=== PATIENT | female | born 1935 | race Caucasian/White ===

== ENCOUNTER 2020-03-31 04:12 | Emergency (ER) | payer MEDICARE ==
[~2020-03-31] VITALS: Ht 152.4 cm; Wt 55.0 kg
--- NOTE | 2020-03-31 04:24 | PHYS DOC ---
Past Medical History Past Medical History: Dementia Past Medical History KIDNEY DISEASE Alcohol Use: None Drug Use: None Social History Narrative: LIVES AT DEMENTIA UNIT AT ASSISTED LIVING [facility] Adult EDM: Chief Complaint: MECHANICAL FALL HPI: HPI: Patient is a 84 year old female with a history of dementia fell out of bed just prior to arrival. Patient arrives via EMS with a contusion to the left side of her forehead with superficial laceration above it as well as a skin tear to the left elbow. Patient only complains of the left elbow and head pain. History physical and review of systems is limited due to dementia. Patient does not remember falling. Review of Systems: Review of Systems: Constitutional: Denies fever or chills. [] Eyes: Denies change in visual acuity. [] HENT: Denies nasal congestion or sore throat. [] Respiratory: Denies cough or shortness of breath. [] Cardiovascular: Denies chest pain or edema. [] GI: Denies abdominal pain, nausea, vomiting, bloody stools or diarrhea. [] : Denies dysuria. [] Musculoskeletal: Denies back pain but complains of left elbow pain Integument: Denies rash. [] Neurologic: Complains of headache but no, focal weakness or sensory changes. [] Endocrine: Denies polyuria or polydipsia. [] Lymphatic: Denies swollen glands. [] Psychiatric: Denies depression or anxiety. [] Review of systems limited by altered mental status Heart Score: Risk Factors: Risk Factors: DM, Current or recent (<one month) smoker, HTN, HLP, family history of CAD, obesity. Risk Scores: Score 0 - 3: 2.5% MACE over next 6 weeks - Discharge Home Score 4 - 6: 20.3% MACE over next 6 weeks - Admit for Clinical Observation Score 7 - 10: 72.7% MACE over next 6 weeks - Early Invasive Strategies Current Medications: Current Medications Medications (Trade) Dose Ordered Sig/Neeru Start Time Stop Time Status Last Admin Dose Admin Tetanus/ Diphtheria Toxoids (Tenivac Syringe) 0.5 ml ONCE ONCE 03/31/20 04:30 03/31/20 04:31 UNV Physical Exam: PE: Constitutional: Well developed, well nourished, no acute distress, non-toxic appearance. [] HENT: Contusion to the left temporal area with superficial laceration. No trismus. No obvious oral injuries. No septal hematoma. External ears normal. Eyes: PERRLA, EOMI, conjunctiva normal, no discharge. [] Neck: Normal range of motion, no tenderness, supple, no stridor. [] Cardiovascular:Heart rate regular rhythm,, peripheral pulses intact, cap refill brisk Lungs & Thorax: Bilateral breath sounds clear, no respiratory distress] Abdomen: soft, no tenderness, no masses, no pulsatile masses. [] Skin: Warm, dry, no erythema, no rash. [] Superficial laceration to left temporal area and skin tear to left elbow Back: No tenderness, no CVA tenderness. [] Extremities: Skin tear to left elbow with mild tenderness. No other gross abnormality seen. Neurovascular intact distally. MILD TTP LEFT HIP Neurologic: Alert and oriented X1, normal motor function, normal sensory function, no focal deficits noted. [] Psychologic: Affect normal, judgement normal, mood normal. [] Current Patient Data: Vital Signs: Vital Signs Date Time Temp Pulse Resp B/P (MAP) Pulse Ox O2 Delivery O2 Flow Rate FiO2 03/31/20 04:27 96.2 68 36 183/79 (113 100 Room Air 96.2 EKG: EKG: [] Radiology/Procedures: Radiology/Procedures: [][facility] [address] [place], [place] [id number] IMAGING REPORT Signed PATIENT: TOMMY LOPEZ ACCOUNT: [id number] : 1935 LOCATION: ER AGE: 84 SEX: F EXAM STATUS: REG ER ORD. PHYSICIAN: LAURYN TOBAR MD REASON: FALL PROCEDURE: CT HEAD AND CERVICAL SPINE WO CT head without contrast. CT cervical spine without contrast. PQRS statement: CT scans at this facility use dose reduction including either automated exposure control, iterative reconstructions, and /or weight based radiation dosing via mA and kV modification when appropriate to reduce radiation dose to as low as reasonably achievable. HISTORY: Fall injury. Pain. CT head findings: Generalized brain atrophy. There is ventriculomegaly which may be related to brain atrophy or indicate normal pressure hydrocephalus. There are several scattered tiny punctate calcifications along the surface of the brain at the left insular cortex, right frontal cortex towards the vertex and left occipital cortex these could represent small embolized calcified plaque or could be the sequela of an old parasitic infection such as neurocysticercosis. No edema associated with these small calcifications. No infarct. No mass. No hemorrhage. There is mild left frontal and temporal scalp soft tissue edema. No scalp hematoma. Cartilaginous nasal septal perforation. Orbits, mastoids and bones are unremarkable. IMPRESSION: No acute intracranial CT abnormality. Left frontotemporal scalp soft tissue swelling. No scalp hematoma. No skull fracture. Other incidental findings as described above. CT cervical spine findings: Craniocervical junction intact. Cervical scoliosis. Cervical vertebral body height and alignment intact. Ankylosis of the left C2-C3 facet joint and right C4-C5 facet joint. No fracture of the cervical spine. Multilevel cervical disc height loss and bulky disc osteophytes and uncovertebral facet spurs with spinal canal and neural foraminal stenoses. Lung apices unremarkable. Thyroid nodules largest is a hypodensity centimeter right thyroid nodule. IMPRESSION: 1. No acute osseous injury of the cervical spine 2. Cervical disc disease. 3. 2 cm right thyroid lobe nodule. If this has not been previously evaluated consider further assessment with outpatient thyroid sonography. Electronically signed by: Omer Walker MD (03/31/2020 5:19 AM) [facility] [place] DICTATED and SIGNED BY: OMER WALKER MD DATE: 03/31/20518 IMAGING REPORT Signed PATIENT: TOMMY LOPEZ ACCOUNT: [id number] : 1935 LOCATION: ER AGE: 84 SEX: F EXAM STATUS: REG ER ORD. PHYSICIAN: LAURYN TOBAR MD REASON: FALL PROCEDURE: PORTABLE CHEST 1V AP chest x-ray HISTORY: Fall, pain. FINDINGS: Heart size normal. Mediastinal silhouette is normal. No pneumothorax. No pleural effusions. Mild basilar lower lobe discoid atelectasis. Bones are unremarkable. IMPRESSION: No acute process. Mild basilar discoid atelectasis. AP pelvis x-ray and left hip AP and lateral x-rays HISTORY: Fall, pain. FINDINGS: ORIF left proximal femur with intramedullary nail of the trochanteric femur and proximal shaft with associated femoral neck compression screws bridging a healed femoral fracture with mild bony sclerosis of the medial femoral basicervical cortex. No acute fracture evident. No dislocation. No bone lysis surrounding the hardware to suggest loosening. IMPRESSION: No acute osseous injury. ORIF of the proximal left femur at the hip. Left elbow x-rays 3 views HISTORY: Fall, pain. FINDINGS: No abnormal elevation of the fat pads to suggest a joint. No fracture. No dislocation. Soft tissues are unremarkable. IMPRESSION: No acute osseous injury. Electronically signed by: Omer Walker MD (03/31/2020 5:41 AM) [facility] DI[facility]ATED and SIGNED BY: OMER WALKER MD DATE: 03/31/20 0541 Course & Med Decision Making: Course & Med Decision Making Pertinent Labs and Imaging studies reviewed. (See chart for details) [] 84-year-old female with a history of dementia fell out of bed. Patient has a superficial laceration to the left side of her head that does not require sutures. Patient also has a skin tear left elbow. X-rays were done of the elbow and the hip that she had mild tenderness on exam. X-rays are negative. Head CT was done due to her age and head strike. Head CT is negative. Patient clinically stable and talkative and appears at her baseline. Stable for discharge back to her assisted living facility. [employer] Disclaimer: Amanda Disclaimer: This electronic medical record was generated, in whole or in part, using a voice recognition dictation system. Departure Departure Impression: Primary Impression: Head injury Additional Impressions: Left elbow contusion Contusion of left hip Condition: STABLE Referrals: PCP Patient Instructions: Head Injury, Adult Additional Instructions: EMERGENCY DEPARTMENT GENERAL DISCHARGE INSTRUCTIONS THANK YOU for coming to [facility] Emergency Department (ED) today and trusting us with your care. We trust that you had a positive experience in our Emergency Department. If you wish to speak to the department Management you can contact the service department manager at . YOUR FOLLOW UP INSTRUCTIONS ARE FOLLOWS: Do you have a private doctor? If you do not have a private doctor, please ask for a resource list of physicians or clinics that may be able to assist you with follow up care. The Emergency Physician has interpreted your x-rays. The X-ray specialist will also review them. If there is a change in the findings you will be notified in 48 hours when at all possible. A lab test or lab culture may have been done, your results will be reviewed and you will be notified if you need a change in treatment. ADDITIONAL INSTRUCTIONS AND INFORMATION Your care today has been supervised by a physician who is specially trained in emergency care. Many problems require more than one evaluation for a complete diagnosis and treatment. We recommend that you schedule your follow up appointment as recommended to ensure complete treatment of your illness or injury. If you are unable to obtain follow up care and continue to have a problem, or if your condition worsens we recommend that you return to the ED. We are not able to safely determine your condition over the phone nor are we able to give sound medical advice over the phone. For these safety reasons, if you call for medical advice we will ask you to come to the ED for further evaluation If you have any questions regarding these discharge instructions please call the ED at . SAFETY INFORMATION In the interest of safety, wellness, and injury prevention; we encourage you to wear your seatbelt, if you smoke; quit smoking, and we encourage your family to use protective helmet for bicycling and other sporting events that present an increased risk for head injury. IF YOUR SYMPTOMS WORSEN OR NEW SYMPTOMS DEVELOP, OR YOU HAVE CONCERNS ABOUT YOUR CONDITION; OR IF YOUR CONDITION WORSENS WHILE YOU ARE WAITING FOR YOUR FOLLOW UP APPOINTMENT; EITHER CONTACT YOUR PRIMARY CARE DOCTOR, THE PHYSICIAN WHOSE NAME AND NUMBER YOU WERE GIVEN, OR RETURN TO THE ED IMMEDIATELY. There is a thyroid nodule seen on CT of the neck which needs outpatient ultrasound for further evaluation Justicifation of Admission Dx: Justifications for Admission: Justification of Admission Dx: N/A LAURYN TOBAR MD Mar 31, 2020 04:24
[2020-03-31] MEDS ORDERED: TETANUS AND DIPHTHERIA TOX/PF 0.5 ML DISP.SYRIN. VAX IM ONE (04:30)
--- NOTE | 2020-03-31 05:22 | RAD ---
CT head without contrast. CT cervical spine without contrast. PQRS statement: CT scans at this facility use dose reduction including either automated exposure control, iterative reconstructions, and /or weight based radiation dosing via mA and kV modification when appropriate to reduce radiation dose to as low as reasonably achievable. HISTORY: Fall injury. Pain. CT head findings: Generalized brain atrophy. There is ventriculomegaly which may be related to brain atrophy or indicate normal pressure hydrocephalus. There are several scattered tiny punctate calcifications along the surface of the brain at the left insular cortex, right frontal cortex towards the vertex and left occipital cortex these could represent small embolized calcified plaque or could be the sequela of an old parasitic infection such as neurocysticercosis. No edema associated with these small calcifications. No infarct. No mass. No hemorrhage. There is mild left frontal and temporal scalp soft tissue edema. No scalp hematoma. Cartilaginous nasal septal perforation. Orbits, mastoids and bones are unremarkable. IMPRESSION: No acute intracranial CT abnormality. Left frontotemporal scalp soft tissue swelling. No scalp hematoma. No skull fracture. Other incidental findings as described above. CT cervical spine findings: Craniocervical junction intact. Cervical scoliosis. Cervical vertebral body height and alignment intact. Ankylosis of the left C2-C3 facet joint and right C4-C5 facet joint. No fracture of the cervical spine. Multilevel cervical disc height loss and bulky disc osteophytes and uncovertebral facet spurs with spinal canal and neural foraminal stenoses. Lung apices unremarkable. Thyroid nodules largest is a hypodensity centimeter right thyroid nodule. IMPRESSION: 1. No acute osseous injury of the cervical spine 2. Cervical disc disease. 3. 2 cm right thyroid lobe nodule. If this has not been previously evaluated consider further assessment with outpatient thyroid sonography. Electronically signed by: Steve Garvin MD (03/31/2020 5:19 AM) [facility]
--- NOTE | 2020-03-31 05:44 | RAD ---
AP chest x-ray HISTORY: Fall, pain. FINDINGS: Heart size normal. Mediastinal silhouette is normal. No pneumothorax. No pleural effusions. Mild basilar lower lobe discoid atelectasis. Bones are unremarkable. IMPRESSION: No acute process. Mild basilar discoid atelectasis. AP pelvis x-ray and left hip AP and lateral x-rays HISTORY: Fall, pain. FINDINGS: ORIF left proximal femur with intramedullary nail of the trochanteric femur and proximal shaft with associated femoral neck compression screws bridging a healed femoral fracture with mild bony sclerosis of the medial femoral basicervical cortex. No acute fracture evident. No dislocation. No bone lysis surrounding the hardware to suggest loosening. IMPRESSION: No acute osseous injury. ORIF of the proximal left femur at the hip. Left elbow x-rays 3 views HISTORY: Fall, pain. FINDINGS: No abnormal elevation of the fat pads to suggest a joint. No fracture. No dislocation. Soft tissues are unremarkable. IMPRESSION: No acute osseous injury. Electronically signed by: Steve Garvin MD (03/31/2020 5:41 AM) [facility]
[2020-03-31 06:16] VITALS: BP 179/70
== END 2020-03-31 07:12 | disposition home or self-care (01) ==
LOC: ER 04:12
DX: S01.81XA Laceration without foreign body of other part of head, initial encounter (principal); S51.012A Laceration without foreign body of left elbow, initial encounter; S70.02XA Contusion of left hip, initial encounter; F03.90 Unspecified dementia, unspecified severity, without behavioral disturbance, psychotic disturbance, mood disturbance, and anxiety; E04.1 Nontoxic single thyroid nodule; M50.90 Cervical disc disorder, unspecified, unspecified cervical region; R51 Headache; M25.552 Pain in left hip; R07.89 Other chest pain; W06.XXXA Fall from bed, initial encounter; Y93.89 Activity, other specified; Y92.89 Other specified places as the place of occurrence of the external cause; Y99.8 Other external cause status
CPT/HCPCS: 70450; 71045; 72125; 73080; 73502; 90471; 90714; 99285-25

== ENCOUNTER 2020-04-12 01:44 | Emergency (ER) | payer MEDICARE ==
[~2020-04-12] VITALS: Ht 152.4 cm; Wt 75.0 kg
[2020-04-12] MEDS ORDERED: LIDOCAINE 1% Multi-Dose 20 ML VIAL. INJ ONE (03:00)
--- NOTE | 2020-04-12 03:28 | RAD ---
STUDY: CT head and cervical spine without contrast INDICATION: Closed head injury. COMPARISON: 03/31/2020 TECHNIQUE: Axial CT imaging through the head and cervical spine without the use of intravenous contrast. Sagittal and coronal reformats were obtained. One or more of the following individualized dose reduction techniques were utilized for this examination: 1. Automated exposure control 2. Adjustment of the mA and/or kV according to patient size 3. Use of iterative reconstruction technique. FINDINGS: CT head: No acute intracranial hemorrhage. No CT evidence for an acute cortical infarction. No mass effect or midline shift. Parenchymal volume loss with ex vacuo ventriculomegaly. Intracranial atherosclerotic calcifications. Sequela of chronic microvascular ischemic change. Left frontal/periorbital contusive injury with associated laceration along the lower left frontal scalp. No findings to suggest injury to the globes or retrobulbar soft tissues. No depressed calvarial fracture. No layering fluid within the paranasal sinuses. Normally aerated mastoid air cells. CT cervical spine: Diffuse osteopenia limiting assessment for subtle fractures. Taking this into consideration, no acute fracture seen. No traumatic malalignment. Broad cervical levocurvature. Redemonstrated reversal of lordosis at C5. Multilevel facet degeneration, uncovertebral joint hypertrophy and discogenic arthrosis. Unchanged multilevel central canal and neural foraminal encroachment. No large soft tissue hematoma or prevertebral edema. Unchanged right thyroid lobe nodule as previously described. IMPRESSION: CT head: 1. Left frontal/periorbital contusion and a region of left frontal laceration. No depressed calvarial fracture or acute intracranial hemorrhage. 2. Chronic/senescent findings are no different from the recent comparison. CT cervical spine: 1. Taking into consideration diffuse osteopenia, no acute fracture or traumatic malalignment. 2. Advanced degenerative changes have not progressed in the short time interval from the comparison. Electronically signed by: LISA FIELD MD (04/12/2020 3:25 AM) [id number]
--- NOTE | 2020-04-12 03:49 | PHYS DOC ---
Past Medical History Past Medical History: Constipation, Dementia, Hypertension, Renal Failure Past Surgical History: No Surgical History Smoking Status: Unknown if ever smoked Alcohol Use: None Drug Use: None General Adult EDM: Chief Complaint: MECHANICAL FALL HPI: HPI: Patient is an 84-year-old female who presents to the emergency room after having a fall. Patient has a history of dementia. She reportedly was found in the hallway after wandering out of her room. Patient does not typically walk on her own. Unknown loss of consciousness. Patient has no complaints. Review of Systems: Review of Systems: Unable to obtain due to dementia Heart Score: Risk Factors: Risk Factors: DM, Current or recent (<one month) smoker, HTN, HLP, family histo ry of CAD, obesity. Risk Scores: Score 0 - 3: 2.5% MACE over next 6 weeks - Discharge Home Score 4 - 6: 20.3% MACE over next 6 weeks - Admit for Clinical Observation Score 7 - 10: 72.7% MACE over next 6 weeks - Early Invasive Strategies Current Medications: Current Medications Medications (Trade) Dose Ordered Sig/Neeru Start Time Stop Time Status Last Admin Dose Admin Lidocaine HCl (Lidocaine 1% 20ml Vial) 20 ml 1X ONCE 04/12/20 03:00 04/12/20 03:01 DC 04/12/20 03:20 20 ML Allergies: Allergies: Allergies Coded Allergies Type Severity Reaction Last Updated Verified sulfamethoxazole Allergy Unknown 03/31/20 Yes trimethoprim Allergy Unknown 03/31/20 Yes Physical Exam: PE: General: Awake, alert, NAD. Well Nourished, well hydrated. Cooperative HEENT: Abrasion to the left upper eyelid, 4 cm gaping laceration to left forehead, EOMI, PERRL, airway patent, moist oral mucosa, no nasal septal hematoma, no facial crepitus or deformity Neck: Supple, trachea midline,[no c-spine tenderness] Respiratory: CTA bilaterally, normal effort, no wheezing/crackles, no crepitus CV: RRR, no murmur, cap refill <2, 2+ bilateral radial/DP pulses GI: Soft, nondistended, nontender, no masses MSK: [No obvious deformities], pelvis stable and nontender Skin: Warm, dry Neuro: A&O x1, speech NL, sensory and motor grossly intact, no focal deficits Psych: Normal affect, normal mood, not suicidal or homicidal EKG: EKG: [] Radiology/Procedures: Radiology/Procedures: [] Course & Med Decision Making: Course & Med Decision Making Pertinent Labs and Imaging studies reviewed. (See chart for details) Patient is a 84yo elderly female who presents to the ED after a mechanical fall from standing. On exam, patient has laceration of the forehead and is at her mental baseline. Due to patient's age and head trauma they cannot be ruled out with egyptian CT head rule and will need a CT head to evaluate for intracranial bleed and a CT cervical spine. No signs of major facial injuries and a CT maxillofacial is not needed at this time. Patient did not have any symptoms concerning for a presyncopal episode. They deny chest pain, palpitations, dizziness, headache, shortness of breath, recent bleeding, numbness/weakness in extremities or face. They do not need a syncope work up at this time. CT is negative. Laceration was repaired. Patient's test results and vitals while in the ED were fully reviewed and discussed with the patient. Patient is stable and at this time does not need admission to the hospital. We have discussed strict return precautions and the importance of following up with their Primary Care Physician. Patient stated understanding and was given an opportunity to ask any questions. Patient is in agreement with plan. Dragon Disclaimer: Dragpriscila Disclaimer: This electronic medical record was generated, in whole or in part, using a voice recognition dictation system. PROCEDURE Procedure Laceration Repair Performed by: Eric Arciniega MD Consent: obtained verbally from patient. Risks and benefits were discussed prior to consent Time out performed prior to procedure Location: forehead Length: 4cm Foreign bodies: No foreign bodies Tendon involvement: none Neurovascularly intact Local anesthetic: lidocaine with epinephrine Anesthetic total: 5 ml Patient sedated: no Preparation: Patient was prepped and draped in usual sterile fashion. Wound was cleaned extensively with water Amount of clean: moderate Deep stitches: no Skin closure: 3-0 Number of sutures: 5 Technique: simple interrupted Approximation: closed Approximation difficulty: minimal Patient tolerated procedure well Departure Departure Impression: Primary Impression: Fall Additional Impressions: Closed head injury Laceration of forehead Disposition: HOME, SELF-CARE Condition: STABLE Referrals: JEN KRISHNAN DO (PCP) Patient Instructions: Head Injury, Adult, Laceration Care, Adult Additional Instructions: Suture removal in 10 days Justicifation of Admission Dx: Justifications for Admission: Justification of Admission Dx: N/A ERIC ARCINIEGA MD Apr 12, 2020 03:49
[2020-04-12 04:33] VITALS: BP 140/56
== END 2020-04-12 05:20 | disposition home or self-care (01) ==
LOC: ER 01:44
DX: S01.81XA Laceration without foreign body of other part of head, initial encounter (principal); I11.0 Hypertensive heart disease with heart failure; I50.9 Heart failure, unspecified; F03.90 Unspecified dementia, unspecified severity, without behavioral disturbance, psychotic disturbance, mood disturbance, and anxiety; Z88.1 Allergy status to other antibiotic agents; Z88.2 Allergy status to sulfonamides; W18.39XA Other fall on same level, initial encounter; Y93.89 Activity, other specified; Y92.89 Other specified places as the place of occurrence of the external cause; Y99.8 Other external cause status
CPT/HCPCS: 12013; 70450; 72125; 99285; J3490

== ENCOUNTER 2020-07-16 13:06 | Emergency (ER) | payer MEDICARE ==
[~2020-07-16] VITALS: Ht 170.2 cm; Wt 63.3 kg
[~2020-07-16 13:06] MED LIST: BUSP5TAB PO; CALC-31 PO; DIVA-53 PO; DIVALPROEX SODIUM; FERR325T14 PO; LIDO1ADH63 TP; MELA5TAB20 PO; MEMA10TA PO; MEMA5TAB PO; MULT-650 PO; OXYC5CAP PO; POLY17PO28 PO; SENN8.6T11 PO; TRAZ-118 PO; cholecalciferol
[2020-07-16 13:59] LABS: BASO % 0 % (0-3); EOS # 0.3 x10^3/uL (0.0-0.7); EOS % 2 % (0-3); HEMATOCRIT 35.2 % (36.0-47.0); HEMOGLOBIN 11.8 g/dL (12.0-15.5); LYMPH % 14 % (24-48); MEAN CORPUSCULAR HEMOGLOBIN 33 pg (25-35); MEAN CORPUSCULAR HGB CONC 34 g/dL (31-37); MEAN CORPUSCULAR VOLUME 98 fL (79-100); MONO # 1.2 x10^3/uL (0.0-1.1); MONO % 8 % (0-9); NEUT # 11.7 x10^3/uL (1.8-7.7); NEUT % 77 % (31-73); PLATELET COUNT 312 x10^3/uL (140-400); RED BLOOD COUNT 3.57 x10^6/uL (3.50-5.40); RED CELL DISTRIBUTION WIDTH 14.8 % (11.5-14.5); WHITE BLOOD COUNT 15.2 x10^3/uL (4.0-11.0)
[2020-07-16 14:09] LABS: CALCIUM 8.7 mg/dL (8.5-10.1); GFR 52.6; POTASSIUM 3.8 mmol/L (3.5-5.1)
[2020-07-16 14:10] LABS: BILIRUBIN,URINE NEGATIVE (NEG); CLARITY,URINE CLEAR; COLOR,URINE YELLOW; NITRITE,URINE NEGATIVE (NEG); PH,URINE 6.5 (<5.0-8.0); PROTEIN,URINE NEGATIVE (NEG-TRACE); UROBILINOGEN,URINE 0.2 mg/dL (0.2 mg/dL)
[2020-07-16 14:17] LABS: BACTERIA,URINE 0 /HPF (0-FEW); HYALINE CASTS, URINE MANY /HPF; RBC,URINE 0 /HPF (0-2); WBC,URINE 20-40 /HPF (0-4)
[2020-07-16 14:23] LABS: ALBUMIN 3.3 g/dL (3.4-5.0); ALBUMIN/GLOBULIN RATIO 0.8 (1.0-1.7); TOTAL BILIRUBIN 0.3 mg/dL (0.2-1.0); TOTAL PROTEIN 7.2 g/dL (6.4-8.2)
--- NOTE | 2020-07-16 14:24 | RAD ---
AP chest. HISTORY: Altered mental status AP view was taken of the chest. Comparison is made with a study from July 10. There is increased retrocardiac density from atelectasis or infiltrate or left pleural effusion. There is arthritis at the shoulders. The patient is rotated to the left. No other acute finding is noted. IMPRESSION: 1. Retrocardiac density on the left from increased atelectasis or infiltrate or pleural effusion. Electronically signed by: Vignesh Mejia MD (07/16/2020 2:20 PM) [facility]
--- NOTE | 2020-07-16 14:32 | RAD ---
CT HEAD WO CONTRAST Clinical indications: Altered mental status, found unresponsive, woke up confused COMPARISON: July 06, 2020. Technique: Noncontrast axial cross sectional scanning of the head was performed. PQRS compliance Statement One or more of the following individualized dose reduction techniques were utilized for this study: 1. Automated exposure control 2. Adjustment of the mA and/or kV according to patient size 3. Use of iterative reconstruction technique Findings: Patient motion artifact is seen. No acute intracranial hemorrhage or midline shift or mass-effect or extra-axial fluid collection is seen. Ventriculomegaly is unchanged. No new focal hypodense area or sulci effacement is seen to indicate an acute infarct or edema radiographically. No skull fracture or pneumocephalus is seen. No opacification of the mastoid sinuses or the middle ear cavities or the paranasal sinuses is seen. The maxillary sinuses are not completely seen in this study. Impression: No new intracranial abnormality is seen. The previously seen right maxillary and ethmoid sinusitis has cleared. Electronically signed by: Lester Lake MD (07/16/2020 2:29 PM) [id number]
--- NOTE | 2020-07-16 15:01 | ED.ADGEN ---
Past Medical History Past Medical History: Constipation, Dementia, Hypertension, Renal Failure, Other Additional Past Medical Histor: ACUTE RENAL FAILURE, RIB FX, OSTEOPOROSIS, COVID 19 Past Surgical History: No Surgical History Smoking Status: Unknown if ever smoked Alcohol Use: None Drug Use: None General Adult EDM: Chief Complaint: ALTERED MENTAL STATUS HPI: HPI: Patient is a 85 year old female who presents to the Emergency Room after an episode of Altered mental status. According to report, she was found "unresponsive" so EMS was called. Upon EMS arrival, patient was back to her baseline. She has no complaints at this time. Review of Systems: Review of Systems: Negative other than noted Allergies: Allergies: Allergies Coded Allergies Type Severity Reaction Last Updated Verified sulfamethoxazole Allergy Intermediate 07/09/20 Yes trimethoprim Allergy Intermediate 07/09/20 Yes Physical Exam: PE: General: Awake, alert, NAD. Well Nourished, well hydrated. Cooperative HEENT: Atraumatic, EOMI, PERRL, airway patent, moist oral mucosa Neck: Supple, trachea midline Respiratory: CTA bilaterally, normal effort, no wheezing/crackles CV: RRR, no murmur, cap refill <2 GI: Soft, nondistended, nontender, no masses MSK: No obvious deformities Skin: Warm, dry, intact Neuro: A&O x1, speech NL, 5/5 strength in BUE/BLE distally and proximally, CN 2- 12 intact, cerebellar testing normal Psych: Normal affect, normal mood, not suicidal or homicidal Current Patient Data: Labs: Laboratory Tests Test 07/16/20 13:05 07/16/20 13:45 Urine Collection Type U cath Urine Color Yellow Urine Clarity Clear Urine pH 6.5 (<5.0-8.0) Urine Specific [place] 1.015 (1.000-1.030) Urine Protein Negative mg/dL (NEG-TRACE) Urine Glucose (UA) Negative mg/dL (NEG) Urine Ketones (Stick) Negative mg/dL (NEG) Urine Blood Negative (NEG) Urine Nitrite Negative (NEG) Urine Bilirubin Negative (NEG) Urine Urobilinogen Dipstick 0.2 mg/dL (0.2 mg/dL) Urine Leukocyte Esterase Small (NEG) Urine RBC 0 /HPF (0-2) Urine WBC 20-40 /HPF (0-4) Urine Bacteria 0 /HPF (0-FEW) Urine Hyaline Casts Many /HPF Urine Mucus Marked /LPF White Blood Count 15.2 x10^3/uL (4.0-11.0) H Red Blood Count 3.57 x10^6/uL (3.50-5.40) Hemoglobin 11.8 g/dL (12.0-15.5) L Hematocrit 35.2 % (36.0-47.0) L Mean Corpuscular Volume 98 fL (79-100) Mean Corpuscular Hemoglobin 33 pg (25-35) Mean Corpuscular Hemoglobin Concent 34 g/dL (31-37) Red Cell Distribution Width 14.8 % (11.5-14.5) H Platelet Count 312 x10^3/uL (140-400) Neutrophils (%) (Auto) 77 % (31-73) H Lymphocytes (%) (Auto) 14 % (24-48) L Monocytes (%) (Auto) 8 % (0-9) Eosinophils (%) (Auto) 2 % (0-3) Basophils (%) (Auto) 0 % (0-3) Neutrophils # (Auto) 11.7 x10^3/uL (1.8-7.7) H Lymphocytes # (Auto) 2.0 x10^3/uL (1.0-4.8) Monocytes # (Auto) 1.2 x10^3/uL (0.0-1.1) H Eosinophils # (Auto) 0.3 x10^3/uL (0.0-0.7) Basophils # (Auto) 0.0 x10^3/uL (0.0-0.2) Sodium Level 138 mmol/L (136-145) Potassium Level 3.8 mmol/L (3.5-5.1) Chloride Level 100 mmol/L (98-107) Carbon Dioxide Level 27 mmol/L (21-32) Anion Gap 11 (6-14) Blood Urea Nitrogen 25 mg/dL (7-20) H Creatinine 1.0 mg/dL (0.6-1.0) Estimated GFR (Cockcroft-Gault) 52.6 BUN/Creatinine Ratio 25 (6-20) H Glucose Level 107 mg/dL (70-99) H Lactic Acid Level 2.4 mmol/L (0.4-2.0) H Calcium Level 8.7 mg/dL (8.5-10.1) Total Bilirubin 0.3 mg/dL (0.2-1.0) Aspartate Amino Transferase (AST) 39 U/L (15-37) H Alanine Aminotransferase (ALT) 122 U/L (14-59) H Alkaline Phosphatase 84 U/L (46-116) Troponin I Quantitative < 0.017 ng/mL (0.000-0.055) Total Protein 7.2 g/dL (6.4-8.2) Albumin 3.3 g/dL (3.4-5.0) L Albumin/Globulin Ratio 0.8 (1.0-1.7) L Laboratory Tests 07/16/20 13:45 Laboratory Tests 07/16/20 13:45 Vital Signs: Vital Signs Date Time Temp Pulse Resp B/P (MAP) Pulse Ox O2 Delivery O2 Flow Rate FiO2 07/16/20 13:06 96.5 60 15 97/60 (72) 90 Room Air 96.5 EKG: EKG: [] Heart Score: Risk Factors: Risk Factors: DM, Current or recent (<one month) smoker, HTN, HLP, family history of CAD, obesity. Risk Scores: Score 0 - 3: 2.5% MACE over next 6 weeks - Discharge Home Score 4 - 6: 20.3% MACE over next 6 weeks - Admit for Clinical Observation Score 7 - 10: 72.7% MACE over next 6 weeks - Early Invasive Strategies Radiology/Procedures: Radiology/Procedures: [] Course & Med Decision Making: Course & Med Decision Making Pertinent Labs and Imaging studies reviewed. (See chart for details) Patient is an 85-year-old female who presents to the emergency room after having an episode of altered mental status. Upon arrival to the emergency room she is back at her baseline. Patient reportedly has dementia. Altered mental status work-up was done including the infectious work-up and a CT of the head. CT is negative. Patient has a negative stroke scale at this time other than deficits from her dementia. Patient does appear to have a UTI. We will treat her with antibiotics. She was also given fluids due to dehydration. Patient's test results and vitals while in the ED were fully reviewed and discussed with the patient. Patient is stable and at this time does not need admission to the hospital. We have discussed strict return precautions and the importance of following up with their Primary Care Physician. Patient stated understanding and was given an opportunity to ask any questions. Patient is in agreement with plan. Dragon Disclaimer: Dragon Disclaimer: This electronic medical record was generated, in whole or in part, using a voice recognition dictation system. Departure Departure Impression: Primary Impression: UTI (urinary tract infection) Additional Impression: Dehydration Disposition: 01 DC HOME SELF CARE/HOMELESS Condition: STABLE Referrals: JEN KRISHNAN DO (PCP) Patient Instructions: Dehydration, Adult, Urinary Tract Infection Scripts Cephalexin (CEPHALEXIN) 500 Mg Tablet 500 MG PO BID for 10 Days, #20 TAB Prov: ERIC ROSALES MD 07/16/20 Problem Qualifiers ERIC ROSALES MD Jul 16, 2020 15:01
[2020-07-16 15:35] VITALS: BP 125/59
[2020-07-16] MEDS ORDERED: CEPH500T PO (15:43)
[2020-07-16] MEDS ORDERED: IV NORMAL SALINE 1000ML BAG 1,000 ML IV ONE (15:45)
== END 2020-07-16 20:12 | disposition home or self-care (01) ==
LOC: ER 13:06
DX: N39.0 Urinary tract infection, site not specified (principal); E86.0 Dehydration; I11.0 Hypertensive heart disease with heart failure; I50.9 Heart failure, unspecified; F03.90 Unspecified dementia, unspecified severity, without behavioral disturbance, psychotic disturbance, mood disturbance, and anxiety; Z88.1 Allergy status to other antibiotic agents; Z88.2 Allergy status to sulfonamides
CPT/HCPCS: 36415; 70450; 71045; 80053; 81001; 83605; 84484; 85025; 96360; 99285; J7030